=== PATIENT | female | born 1940 | race Caucasian/White ===

== ENCOUNTER 2017-01-17 09:14 | Emergency (ER) | payer MEDICARE, OTHER ==
[~2017-01-17] VITALS: Ht 162.6 cm; Wt 55.8 kg
[2017-01-17] MEDS ORDERED: ESOM20CA PO (09:42)
[2017-01-17] MEDS ORDERED: POTA10TA10 PO (09:42)
[2017-01-17] MEDS ORDERED: OXYB5TAB7 PO (09:42)
[2017-01-17] MEDS ORDERED: DONE10TA7 PO (09:42)
[2017-01-17] MEDS ORDERED: PRAV20TA2 PO (09:42)
[2017-01-17] MEDS ORDERED: GABA600T2 PO (09:42)
[2017-01-17] MEDS ORDERED: HYDR12.53 PO (09:42)
[2017-01-17] MEDS ORDERED: AMLO5TAB2 PO (09:42)
[2017-01-17] MEDS ORDERED: SULI200T2 PO (09:42)
[2017-01-17] MEDS ORDERED: LEVO100T5 PO (09:42)
[2017-01-17] MEDS ORDERED: CITA10TA4 PO (09:42)
[2017-01-17] MEDS ORDERED: ZOFRAN IV STA (09:46)
[2017-01-17] MEDS ORDERED: NS 1000ML 1,000 ML STA (09:46)
--- NOTE | 2017-01-17 09:50 | ER.PDOC ---
General Chief Complaint: Nausea,Vomiting,Diarrhea Stated Complaint: POSSIBLE DEHYDRATION Time seen by MD: 09:45 Source: patient Exam Limitations: no limitations History of Present Illness Initial Comments Pt with nausea and vomiting for the past 4 days, feels she might be dehydrated, had some cramps in her legs this morning Timing/Duration: 1 week, constant, getting worse Severity/Quality: moderate Abdominal Pain Onset Location: Epigastric Associated Symptoms (vomiting): freq vomitng Allergies: Coded Allergies: atorvastatin (Verified Allergy, Unknown, Nausea, 01/17/17) codeine (Verified Allergy, Unknown, Nausea, 01/17/17) morphine (Verified Allergy, Unknown, Nausea, 01/17/17) Home Meds Reported Medications Esomeprazole Magnesium (NEXIUM) 20 Mg Capsule.dr, 1 CAP PO BID, #30 CAP 2 Refills 01/17/17 Oxybutynin Chloride (OXYBUTYNIN CHLORIDE) 5 Mg Tablet, 0.5 TAB PO BID, #180 TAB 3 Refills 01/17/17 Potassium Chloride (POTASSIUM CHLORIDE) 10 Meq Tablet.er, 1 TAB PO DAILY, #90 TAB 1 Refill 01/17/17 Sulindac (SULINDAC) 200 Mg Tablet, 200 MG PO BID, TABLET 01/17/17 Donepezil Hcl (DONEPEZIL HCL) 10 Mg Tablet, 1 TAB PO DAILY, #90 TAB 1 Refill 01/17/17 Citalopram Hydrobromide (CITALOPRAM HBR) 10 Mg Tablet, 1 TAB PO DAILY, #30 TAB 3 Refills 01/17/17 Gabapentin (GABAPENTIN) 600 Mg Tablet, 1 TAB PO HS, #90 TAB 3 Refills 01/17/17 Pravastatin Sodium (PRAVASTATIN SODIUM) 20 Mg Tablet, 1 TAB PO DAILY, #30 TAB 5 Refills 01/17/17 Levothyroxine Sodium (LEVOTHYROXINE SODIUM) 100 Mcg Tablet, 1 TAB PO DAILY, #30 TAB 5 Refills 01/17/17 Hydrochlorothiazide (HYDROCHLOROTHIAZIDE) 12.5 Mg Capsule, 1 CAP PO DAILY, #30 CAP 5 Refills 01/17/17 Amlodipine Besylate (AMLODIPINE BESYLATE) 5 Mg Tablet, 1 TAB PO DAILY, #30 TAB 5 Refills 01/17/17 Vital Signs First Vital Signs Date Time Temp Pulse Resp B/P (MAP) Pulse Ox O2 Delivery O2 Flow Rate FiO2 01/17/17 09:33 97.5 60 18 98 01/17/17 09:36 139/80 (99) Last Vital Signs Date Time Temp Pulse Resp B/P (MAP) Pulse Ox O2 Delivery O2 Flow Rate FiO2 01/17/17 09:36 97.5 54 18 139/80 (99) 97 Past Medical History Medical History: GERD, high cholesterol, hypertension, thyroid disease Surgical History: cholecystectomy, hysterectomy, knee, renal Social History Smoking: non-smoker Alcohol Use: none Drug Use: none Constitutional: see HPI EENTM: see HPI Respiratory: see HPI Cardiovascular: see HPI Gastrointestinal: see HPI Genitourinary: see HPI Musculoskeletal: see HPI Skin: see HPI Psychiatric/Neurological: see HPI Endocrine: see HPI Hematologic/Lymphatic: see HPI Physical Exam General Appearance: No Apparent Distress, WD/WN HEENT: PERRL/EOMI, Normal ENT Inspection, TMs Normal, Pharynx Normal Neck: Non-Tender, Full Range of Motion, Supple, Normal Inspection Respiratory: chest non-tender, lungs clear, normal breath sounds, no respiratory distress, no accessory muscle use Cardiovascular: Normal Peripheral Pulses, Regular Rate, Rhythm, No Edema, No Gallop, No JVD, No Murmur Gastrointestinal: Normal Bowel Sounds, Non Tender, Soft Back: Normal Inspection, No CVA Tenderness, No Vertebral Tenderness Extremities: Normal Range of Motion, Non-Tender, Normal Inspection, No Pedal Edema, No Calf Tenderness, Normal Capillary Refill, Pelvis Stable Neurologic/Psychiatric: doughnut maker II-XII NML as Tested, No Motor/Sensory Deficits, Alert, Normal Mood/Affect, Oriented x 3 Skin: Normal Color, Warm/Dry Lymphatic: No Adenopathy Results/Orders Results/Orders Laboratory Tests Test 01/17/17 00:00 01/17/17 09:54 Urine Collection Type Unknown Urine Color Yellow (YELLOW) Urine Appearance Clear (CLEAR) Urine Bilirubin Negative MG/DL (NEGATIVE) Urine Ketones Negative (NEGATIVE) Urine Specific [place] 1.010 (1.005-1.035) Urine pH 6.5 (5.0-6.0) Urine Protein Negative (NEGATIVE) Urine Urobilinogen Normal (NEGATIVE) Urine Nitrate Negative (NEGATIVE) Urine Leukocyte Esterase Negative (NEGATIVE) Urine Blood Negative (NEGATIVE) Urine Glucose Normal (NEGATIVE) White Blood Count 3.8 10^3/uL (4.5-11.0) Red Blood Count 3.73 10^6/uL (4.00-5.20) Hemoglobin 11.7 g/dL (12.0-15.0) Hematocrit 34.3 % (36.0-46.0) Mean Corpuscular Volume 92.0 fL (78-100) Mean Corpuscular Hemoglobin 31.4 pg (26-34) Mean Corpuscular Hemoglobin Concent 34.1 g/dL (33-37) Red Cell Distribution Width 12.4 % (11.5-14.5) Platelet Count 180 10^3/uL (150-400) Mean Platelet Volume 11.0 fL (7.8-11.0) Neutrophils (%) (Auto) 71.0 % (41.0-85.0) Lymphocytes (%) (Auto) 19.1 % (24.0-44.0) Monocytes (%) (Auto) 8.6 % (5.0-12.0) Neutrophils # (Auto) 2.7 10^3/uL (1.8-7.7) Lymphocytes # (Auto) 0.7 10^3/uL (1.0-4.8) Monocytes # (Auto) 0.3 10^3/uL (0.3-0.8) Absolute Immature Granulocyte (auto 0 10^3 u/L (0-2) Eosinophils % 0.8 % (0.0-5.0) Basophils % 0.5 % (0.0-0.2) Basophils # 0.0 10^3/uL (0.0-0.1) Eosinophil Count 0.0 10^3/uL (0.0-0.2) Sodium Level 138 mmol/L (132-145) Potassium Level 4.3 mmol/L (3.6-5.2) Chloride Level 102.0 mmol/L (96-109) Carbon Dioxide Level 28.2 mmol/L (20.0-32) Anion Gap 12.1 Blood Urea Nitrogen 18 mg/dL (7-18) Creatinine 1.43 mg/dL (0.59-1.40) Estimated GFR () 43.1 BUN/Creatinine Ratio 12.0 Glucose Level 134 mg/dL (70-110) Calculated Osmolality 289.4 Calcium Level 9.2 mg/dL (8.4-10.5) Total Bilirubin 0.7 mg/dL (0.2-1.0) Aspartate Amino Transf (AST/SGOT) 64 U/L (0-35) Alanine Aminotransferase (ALT/SGPT) 49 U/L (12-78) Alkaline Phosphatase 153 U/L (50-136) Total Protein 7.0 g/dL (6.4-8.2) Albumin 3.8 g/dL (3.4-5.0) Globulin 3.2 Amylase Level 84 U/L (25-115) Lipase 171 U/L (114-286) Percent Immature Gran (Cell Imm) 0.00 % (0.00-0.50) Administered Medications Medications (Trade) Dose Ordered Sig/Mis Route PRN Reason Start Time Stop Time Status Last Admin Dose Admin Sodium Chloride 1,000 ml @ 1,000 mls/hr Q1H STAT IV 01/17/17 09:46 01/17/17 10:45 DC 01/17/17 10:20 Ondansetron HCl (Zofran) 4 mg STAT STAT IV 01/17/17 09:46 01/17/17 09:47 DC 01/17/17 10:20 Departure Time of Disposition: 11:27 Disposition: 01 HOME, SELF-CARE Impression: Primary Impression: Dehydration Additional Impression: Nausea & vomiting Condition: Stable Patient Instructions: Dehydration, Adult, [id number], Nausea and Vomiting, Pulj-up-Unuv Referrals: PCP,UNKNOWN (PCP) PRIMARY CARE PROVIDER CORNELL LERMA MD Jan 17, 2017 09:50
[2017-01-17 10:01] LABS: BASOPHIL % 0.5 % (0.0-0.2); EOSINOPHIL % 0.8 % (0.0-5.0); HEMATOCRIT 34.3 % (36.0-46.0); HEMOGLOBIN 11.7 g/dL (12.0-15.0); LYMPHOCYTES # 0.7 10^3/uL (1.0-4.8); LYMPHOCYTES % 19.1 % (24.0-44.0); MEAN CELL HGB 31.4 pg (26-34); MEAN CELL HGB CONCENTRATION 34.1 g/dL (33-37); MONOCYTES # 0.3 10^3/uL (0.3-0.8); MONOCYTES % 8.6 % (5.0-12.0); NEUTROPHIL # 2.7 10^3/uL (1.8-7.7); RED CELL DISTRIBUTION WIDTH 12.4 % (11.5-14.5); WHITE BLOOD CELL 3.8 10^3/uL (4.5-11.0)
[2017-01-17] MEDS ORDERED: NS 1000ML 1,000 ML ONE (10:03)
[2017-01-17] MEDS ORDERED: ZOFRAN ONE (10:03)
[2017-01-17 10:16] LABS: CALCIUM 9.2 mg/dL (8.4-10.5); CARBON DIOXIDE 28.2 mmol/L (20.0-32)
[2017-01-17] MEDS ORDERED: LACTATED RINGERS IV SCH (11:00)
[2017-01-17 11:14] LABS: BILIRUBIN,URINE NEGATIVE (NEGATIVE); UROBILINOGEN,URINE NORMAL (NEGATIVE)
[2017-01-17 11:15] LABS: APPEARANCE,URINE CLEAR (CLEAR); UA COLOR YELLOW (YELLOW)
[2017-01-17] MEDS ORDERED: LACTATED RINGERS 1,000 ML ONE (11:24)
[2017-01-17 12:44] VITALS: BP 139/80
== END 2017-01-17 12:40 | disposition home or self-care (01) ==
LOC: ER 09:14
DX: E86.0 Dehydration (principal); R11.2 Nausea with vomiting, unspecified; R10.13 Epigastric pain; E07.9 Disorder of thyroid, unspecified; E78.00 Pure hypercholesterolemia, unspecified; I10 Essential (primary) hypertension; K21.9 Gastro-esophageal reflux disease without esophagitis; Z90.49 Acquired absence of other specified parts of digestive tract; Z79.899 Other long term (current) drug therapy; Z88.5 Allergy status to narcotic agent; Z88.8 Allergy status to other drugs, medicaments and biological substances
CPT/HCPCS: 36415; 80053; 81002; 82150; 83690; 85025; 96361; 96374; 99284; J2405; J7030; J7120